=== PATIENT | male | born 1955 | race Caucasian/White ===

== ENCOUNTER 2018-09-13 19:31 | Emergency (ER) | payer OTHER, SELFPAY ==
[2018-09-13 19:40] VITALS: BP 157/82; PULSE 63; RESP 21; TEMP 36.4; O2SAT 95
--- NOTE | 2018-09-13 20:11 | ED.GENADUL_ITS ---
Discharge Plan Disposition Patient Disposition: HOME Condition: Good Discharge Details Chief Complaint: Orthopedic Clinical Impression: Multiple fractures of ribs, left side, sequela Primary Care Provider: Peggy Garcia ED Provider: Abrahan Morris Meds and New Rx's Prescriptions: New lidocaine [Lidoderm] 5 % Adhesive Patch,Medicated 1 patch topical DIRECTED Qty: 5 RF: 0 cyclobenzaprine [cyclobenzaprine] 10 MG tablet 10 mg PO Q6H PRN PRN (Reason: Spasms) Qty: 10 RF: 0 Continued hydrochlorothiazide 12.5 mg Capsule 12.5 mg PO DAILY RF: 0 omeprazole 20 mg Capsule,Delayed Release(Dr/Ec) 20 mg PO DAILY RF: 0 aspirin 81 mg Tablet,Chewable 81 mg PO DAILY RF: 0 montelukast 10 mg Tablet 10 mg PO QPM RF: 0 losartan 100 mg Tablet 100 mg PO DAILY RF: 0 rosuvastatin 10 mg Tablet 10 mg PO DAILY RF: 0 hydrocodone-acetaminophen [[place]] 5-325 mg Tablet 1 tab PO Q4H PRNQty: 6 RF: 0 Discharge Instructions Instructions: Rib Fracture (ED) Additional Instructions: Be sure to continue using the incentive spirometer 10 times every hour while awake. Continue ibuprofen. Flexeril for muscle spasm. Hydrocodone/acetaminophen for breakthrough pain. Lidoderm patches on for 12 hours and off for 12 hours. Follow-up with your doctor early next week. Return to ED if you develop fever, cough, increasing shortness of breath. Referrals: Peggy aGrcia [Primary Care Provider] - Medical Decision Making Obtained records from [facility]. He had a CT head and neck which was negative. He had CT chest which showed fractures that were nondisplaced of the 8th, 10th and 11th rib on the left. No other injury. Presenting now with recurrent pain after rolling over in bed. He has normal vital signs and saturations. Lungs sound clear. There was no new direct trauma. We will place Lidoderm patch and give Toradol and obtain chest x-ray. Chest x-ray shows no pneumothorax. There is some basilar atelectasis versus infiltrate. Patient reports that he has been using incentive spirometer. He has had no fevers, chills, cough prior to having increased pain which caused him to have sweats today. Suspect this is atelectasis and not pneumonia. Complaining of muscle spasm and was given Flexeril p.o. Is feeling better unless he moves and then has increased pain. He has decided that he is going to go home rather than stay at the [place]per. He feels better sitting in a recliner. We will give him a dose of IM morphine for the trip home. Patient to continue use of incentive spirometer. We will add Lidoderm and Flexeril to help with discomfort. Continue ibuprofen and hydr ocodone/acetaminophen. He reports having 5 or 6 hydrocodone left. Will give 6 more to cover him for the weekend. Opiate sheet and informed consent obtained. Follow-up with primary care next week. Return to ED for increasing shortness of breath, fever, pain. Medical Records Medical records reviewed: Yes I reviewed the patient's medical records. Imaging Data Radiologic Study: Imaging: X-Ray Radiologist's impression: TECHNIQUE: Imaging protocol: XR of the chest, 2 views. COMPARISON: No relevant prior studies available. FINDINGS: Lungs: There is patchy airspace disease in the left lung base consistent with atelectasis or infiltrate. Additional mild atelectasis or infiltrate in the medial right base. Mild central vascular congestion. Pleural space: No definite effusions. No pneumothorax. Heart/Mediastinum: Mild cardiomegaly. No mediastinal widening. Bones/joints: The patient's clinically described rib fracture is not well seen with current chest radiographic technique. Slight irregularity in the left anterolateral seventh rib could represent a nondisplaced rib fracture. No other potential osseous abnormalities are identified Other findings: No tracheal shift. IMPRESSION: 1. Patchy alveolar densities in the lung bases, left greater than right, consistent with atelectasis or infiltrate. 2. No pneumothorax. 3. The patient's clinically described rib fractures not definitively identified radiographically. There may be a nondisplaced fracture of the left anterolateral seventh rib. Dictated and Authenticated by: Andrea Gutiérrez MD. HPI General Mode of arrival: ambulatory . Date/Time Provider Initiated Documentation: 09/13/18 19:32 . Limitations to Documentation: no limitations . Information obtained by: patient, family and old records reviewed . HPI Narrative: Patient presents with left-sided rib pain. Patient had a fall and was seen at [facility] on the . At that time he was diagnosed with rib fra ctures. He has been using ibuprofen and Vicodin for pain. He is now in this area camping for the weekend. There is no new trauma. He was rolling over in bed when he felt some popping and had recurrent pain. He does not feel short of breath but has difficulty taking a deep breath. He has no new injury or falls. He is here now for evaluation. Related Data Home Medications Medication Instructions Recorded Confirmed aspirin 81 mg PO DAILY 09/13/18 09/13/18 cyclobenzaprine 10 mg PO Q6H PRN PRN #10 tab 09/13/18 hydrochlorothiazide 12.5 mg PO DAILY 09/13/18 09/13/18 hydrocodone-acetaminophen [[place]] 1 tab PO Q4H PRN #6 tab 09/13/18 lidocaine [Lidoderm] 1 patch TOPICAL DIRECTED #5 ea 09/13/18 losartan 100 mg PO DAILY 09/13/18 09/13/18 montelukast 10 mg PO QPM 09/13/18 09/13/18 omeprazole 20 mg PO DAILY 09/13/18 09/13/18 rosuvastatin 10 mg PO DAILY 09/13/18 09/13/18 Previous Rx's Medication Instructions Recorded cyclobenzaprine 10 mg PO Q6H PRN PRN #10 tab 09/13/18 hydrocodone-acetaminophen [[place]] 1 tab PO Q4H PRN #6 tab 09/13/18 lidocaine [Lidoderm] 1 patch TOPICAL DIRECTED #5 ea 09/13/18 Allergies Allergy/AdvReac Type Severity Reaction Status Date / Time No Known Allergies Allergy Unverified 09/13/18 19:44 General Stated Complaint: Orthopedic MAHIN: 3 Review of Systems Review of Systems As documented in HPI otherwise negative as below. Const: no fever, chills, weakness Resp: pleuritic pain; no cough, SOB CV: diaphoresis (from pain); no CP, edema, syncope GI: no abdominal pain, nausea, vomiting, diarrhea Neuro: no headache, numbness, focal weakness, confusion PFSH Medical History HTN (hypertension) (Chronic) Hypercholesterolemia (Chronic) Colon cancer (Resolved) Surgical History S/P colon resection (Inactive) Social History Smoking/Tobacco Use Status: Former Tobacco Use Alcohol Intake: current Alcohol Intake frequency: 0-2 drinks per day Drug use: Never Do you feel safe at home: Yes Do you feel safe in your relationship?: Yes Exam Narrative Exam Narrative: Vitals: Afebrile. Elevated blood pressure but otherwise normal vitals. Normal saturations. Const: Obese male in NAD. HEENT: NC/AT. Normal facial exam. Eyes: Normal conjunctiva and sclera. Neck: Supple. Trachea midline. No c-spine tenderness. Lungs: Shallow breathing. Lungs are clear. Tender along the left lateral/posterior chest wall. Cor: RRR without murmur/gallop. Good radial pulses. GI: Soft. NT/ND. No guarding or rebound. Back: No TLS tenderness. Neuro: A+O x 3. CN grossly in tact. Good strength and no focal deficit. Ext: No C/C/E. No deformity or tenderness. Skin: Warm and diaphoretic. Course Vital Signs Temperature 97.5 F L 09/13/18 19:40 Pulse 63 09/13/18 19:40 Respiratory Rate 21 09/13/18 19:40 Blood Pressure 157/82 H 09/13/18 19:40 Pulse Oximetry 95 09/13/18 19:40 Temperature 97.5 F L 09/13/18 19:40 Temperature Source Skin 09/13/18 19:40 Pulse 63 09/13/18 19:40 Respiratory Rate 21 09/13/18 19:40 Respiratory Effort Non-Labored 09/13/18 19:43 Blood Pressure 157/82 H 09/13/18 19:40 Blood Pressure Position Sitting 09/13/18 19:40 Pulse Oximetry 95 09/13/18 19:40 Oxygen Delivery Method Room Air 09/13/18 19:40 Oxygen Flow Rate 0 09/13/18 19:40 Pain Level 10 09/13/18 19:58
[2018-09-13] MEDS: Lidocaine 5% Patch 1 PATCH TP (20:14)
[2018-09-13] MEDS: Ketorolac 30 MG/ML VIAL IM (20:14)
--- NOTE | 2018-09-13 21:13 | DI.RAD_ITS ---
SYMPTOM/DIAGNOSIS: FOLLOW UP RIB FX, WORSE PAIN PA AND LATERAL CHEST: The exam says follow up fracture, however, no previous exams are available. There is no evidence of pneumothorax. There are patchy densities at the lung bases, left greater than right which could represent a residual contusion, atelectasis or infiltrate. The heart appears mildly enlarged. Degenerative changes are seen in the spine. IMPRESSION: No evidence of pneumothorax. Left lower lobe contusion vs infiltrate or atelectasis.
[2018-09-13] MEDS: Cyclobenzaprine 10 MG TAB PO (21:27)
--- NOTE | 2018-09-13 21:31 | DI.VRAD_ITS ---
EXAM: XR Chest, 2 Views EXAM DATE/TIME: 09/13/2018 8:09 PM CLINICAL HISTORY: 63 years old, male; Other: Left sided pain; Patient HX: Left side pain, follow up rib FX, worse pain TECHNIQUE: Imaging protocol: XR of the chest, 2 views. COMPARISON: No relevant prior studies available. FINDINGS: Lungs: There is patchy airspace disease in the left lung base consistent with atelectasis or infiltrate. Additional mild atelectasis or infiltrate in the medial right base. Mild central vascular congestion. Pleural space: No definite effusions. No pneumothorax. Heart/Mediastinum: Mild cardiomegaly. No mediastinal widening. Bones/joints: The patient's clinically described rib fracture is not well seen with current chest radiographic technique. Slight irregularity in the left anterolateral seventh rib could represent a nondisplaced rib fracture. No other potential osseous abnormalities are identified Other findings: No tracheal shift. IMPRESSION: 1. Patchy alveolar densities in the lung bases, left greater than right, consistent with atelectasis or infiltrate. 2. No pneumothorax. 3. The patient's clinically described rib fractures not definitively identified radiographically. There may be a nondisplaced fracture of the left anterolateral seventh rib. Dictated and Authenticated by: Andrea Gutiérrez MD. Ordering:ABNER Gauthier MD
[2018-09-13 22:14] VITALS: BP 132/68; PULSE 55; RESP 18; O2SAT 97
== END 2018-09-13 22:24 | disposition home or self-care (01) ==
PROVIDERS: Emergency Provider Emergency Medicine; PCP Internal Medicine
DX: S22.42XA Multiple fractures of ribs, left side, initial encounter for closed fracture (principal); M62.838 Other muscle spasm; R91.8 Other nonspecific abnormal finding of lung field
CPT/HCPCS: 96372; 99284; 71046; J1885